=== PATIENT | female | born 1930 | race African-American/Black ===

== ENCOUNTER 2018-08-11 12:04 | Inpatient (IN) | payer MEDICARE, MEDICAID ==
[~2018-08-11] VITALS: Ht 165.1 cm; Wt 91.2 kg
[2018-08-11 15:22] LABS: CHLORIDE 109 mEq/L (98-107)
[2018-08-11 15:24] LABS: BASOPHILS % 1.9 % (0.0-2.0); EOSINOPHILS % 5.2 % (0.0-5.0); HEMATOCRIT. 27.4 % (36.0-48.0); HEMOGLOBIN. 9.1 g/dL (12.0-16.0); LYMPHOCYTES % 38.1 % (20.0-50.0); MEAN CORPUSCULAR VOLUME 102.2 fL (81.0-99.0); MEAN PLATELET VOLUME 8.7 fl (7.4-10.4); MONOCYTES % 7.7 % (2.0-8.0); NEUTROPHILS % 47.1 % (40.0-76.0); PLATELET 172 x1000/uL (130-400); RED BLOOD CELL COUNT 2.68 mill/uL (4.2-5.4); RED CELL DISTRIBUTION WIDTH 15.4 % (11.6-14.6)
[2018-08-11 15:26] LABS: INR 1.1; PARTIAL THROMBOPLASTIN TIME 30.3 sec (23.4-31.0); PROTHROMBIN TIME 10.7 sec (9.1-11.1)
[2018-08-11] MEDS ORDERED: ASPIRIN 81MG TABLET PO ONE (15:45)
[2018-08-11] MEDS ORDERED: NITROGLYCERIN OINT 1GM/INCH UDPKT TD ONE (15:45)
[2018-08-11] MEDS ORDERED: FUROSEMIDE 40MG/4ML VIAL IV ONE (15:45)
[2018-08-11] MEDS ORDERED: DIPHENHYDRAMINE 50MG/ML VIAL IV PRN (17:15)
[2018-08-11] MEDS ORDERED: HYDRALAZINE 20MG/ML VIAL IV PRN (17:15)
[2018-08-11] MEDS ORDERED: IPRATROPIUM/ALBUTEROL 0.5-3(2.5)MG/3ML NEB INH PRN (17:15)
[2018-08-11] MEDS ORDERED: ACETAMINOPHEN 325MG TABLET PO PRN (17:15)
[2018-08-11] MEDS ORDERED: DOCUSATE SODIUM 100MG CAPSULE PO PRN (17:15)
[2018-08-11] MEDS ORDERED: GUAIFENESIN 200MG/10ML SUGAR FREE UDC PO PRN (17:15)
[2018-08-11] MEDS ORDERED: NA PHOS,M-B/NA PHOS,DI-BA ENEMA 118ML PR PRN (17:15)
[2018-08-11] MEDS ORDERED: MAGNESIUM/ALUMINUM HYDROXIDE/SIMETHICONE 30ML UDC PO PRN (17:15)
[2018-08-11] MEDS ORDERED: LORAZEPAM 2MG/ML CPJ IV PRN (17:15)
[2018-08-11] MEDS ORDERED: ONDANSETRON HCL 4MG/2ML INJ IV PRN (17:15)
[2018-08-11] MEDS ORDERED: HYDROCODONE/ACETAMINOPHEN 5/325MG TABLET PO PRN (17:15)
[2018-08-11] MEDS ORDERED: CLONIDINE 0.1MG TABLET PO PRN (17:15)
[2018-08-11 23:30] VITALS: BP 93/48
[2018-08-12 00:05] LABS: CREATINE KINASE 63 IU/L (26-192)
[2018-08-12 00:06] LABS: CREATINE KINASE MB FRACTION < 1.0 ng/mL (0.5-3.6)
[2018-08-12] MEDS ORDERED: Tylenol (00:20)
[2018-08-12] MEDS ORDERED: lasix (00:20)
[2018-08-12] MEDS ORDERED: potassium (00:20)
[2018-08-12] MEDS ORDERED: FURO-151 PO (00:20)
[2018-08-12 05:00] VITALS: BP 139/47
[2018-08-12] MEDS: SODIUM CHLORIDE 0.9% INJ 3ML FLUSH IVF SCH ×3 (05:15→20:32)
[2018-08-12] MEDS: HYDROMORPHONE HCL/PF 2MG/ML CPJ IV PRN ×2 (05:15→23:25)
[2018-08-12 06:11] LABS: BASOPHILS % 1.4 % (0.0-2.0); EOSINOPHILS % 5.4 % (0.0-5.0); HEMATOCRIT. 27.4 % (36.0-48.0); HEMOGLOBIN. 9.1 g/dL (12.0-16.0); LYMPHOCYTES % 30.7 % (20.0-50.0); MEAN CORPUSCULAR HEMOGLOBIN 33.8 pg (28.0-32.0); MEAN PLATELET VOLUME 8.6 fl (7.4-10.4); MONOCYTES % 7.9 % (2.0-8.0); NEUTROPHILS % 54.6 % (40.0-76.0); PLATELET 184 x1000/uL (130-400); RED BLOOD CELL COUNT 2.69 mill/uL (4.2-5.4); RED CELL DISTRIBUTION WIDTH 15.1 % (11.6-14.6)
[2018-08-12 06:27] LABS: CHLORIDE 109 mEq/L (98-107)
[2018-08-12 06:38] LABS: CREATINE KINASE 70 IU/L (26-192)
[2018-08-12 06:40] LABS: CREATINE KINASE MB FRACTION < 1.0 ng/mL (0.5-3.6)
[2018-08-12 08:00] VITALS: BP 125/59
[2018-08-12] MEDS: ASPIRIN 81MG EC TABLET PO SCH (08:50)
[2018-08-12] MEDS: ENOXAPARIN 40MG/0.4ML SYR SUBCUT SCH (08:51)
[2018-08-12] MEDS: FUROSEMIDE 40MG/4ML VIAL IV SCH (09:30)
[2018-08-12 10:48] LABS: T4 FREE 1.14 ng/dL (0.76-1.46)
[2018-08-12 12:00] VITALS: BP 110/52
[2018-08-12 16:00] VITALS: BP 119/56
[2018-08-12 20:00] VITALS: BP_SYST 133; BP_SYST 141; BP_DIAS 43; BP_DIAS 49
[2018-08-13] VITALS: BP 133/43
[2018-08-13 04:00] VITALS: BP 124/42
[2018-08-13] MEDS: SODIUM CHLORIDE 0.9% INJ 3ML FLUSH IVF SCH ×3 (05:23→20:48)
[2018-08-13 08:00] VITALS: BP 143/49
[2018-08-13] MEDS: ASPIRIN 81MG EC TABLET PO SCH (09:09)
[2018-08-13] MEDS: ENOXAPARIN 40MG/0.4ML SYR SUBCUT SCH (09:10)
[2018-08-13] MEDS: FUROSEMIDE 40MG/4ML VIAL IV SCH (09:49)
[2018-08-13 12:00] VITALS: BP 138/50
[2018-08-13 16:00] VITALS: BP 145/48
[2018-08-13 20:00] VITALS: BP 155/50
[2018-08-13] MEDS: HYDROMORPHONE HCL/PF 2MG/ML CPJ IV PRN (22:10)
[2018-08-14 00:05] VITALS: BP 141/52
[2018-08-14 04:00] VITALS: BP 142/52
[2018-08-14] MEDS: SODIUM CHLORIDE 0.9% INJ 3ML FLUSH IVF SCH (05:41)
[2018-08-14 08:00] VITALS: BP 140/56
[2018-08-14 08:04] VITALS: BP 144/46
[2018-08-14] MEDS: ASPIRIN 81MG EC TABLET PO SCH (08:57)
[2018-08-14] MEDS: ENOXAPARIN 40MG/0.4ML SYR SUBCUT SCH (08:57)
[2018-08-14] MEDS: FUROSEMIDE 40MG/4ML VIAL IV SCH (09:10)
== END 2018-08-14 10:50 | disposition home or self-care (01) | DRG 682 ==
LOC: ER 13:30 → 7WST 16:00 → EDBEDREQTM 16:02 → EDBEDREQ 16:02 → EDBEDREQTM 16:05 → EDBEDREQ 16:05 → ENRESERV 19:22
PROVIDERS: ADMIT Internal Medicine; ATTEND Internal Medicine
DX: N17.0 Acute kidney failure with tubular necrosis (principal); I50.43 Acute on chronic combined systolic (congestive) and diastolic (congestive) heart failure; I11.0 Hypertensive heart disease with heart failure; D64.9 Anemia, unspecified; G89.29 Other chronic pain; H54.61 Unqualified visual loss, right eye, normal vision left eye; M19.90 Unspecified osteoarthritis, unspecified site; Z96.653 Presence of artificial knee joint, bilateral; Z79.899 Other long term (current) drug therapy; Z88.0 Allergy status to penicillin
CPT/HCPCS: 36415; 71045; 73521; 80061; 82550; 82553; 83036; 83880; 84439; 84443; 84484; 85379; 93005; 93306; 93970; 96374; 99285; J1170; J1650; J1940

== ENCOUNTER 2018-12-31 17:36 | Emergency (ER) | payer MEDICARE, MEDICAID ==
[~2018-12-31] VITALS: Ht 170.2 cm; Wt 80.0 kg
[~2018-12-31 17:36] MED LIST: FURO-151 PO; Tylenol; potassium
[2018-12-31] MEDS ORDERED: CLONIDINE 0.2MG TABLET PO ONE (20:30)
[2018-12-31 23:30] VITALS: BP 149/47
== END 2019-01-01 | disposition home or self-care (01) ==
LOC: ER 17:40
DX: M79.89 Other specified soft tissue disorders (principal); M79.605 Pain in left leg; I10 Essential (primary) hypertension; Z86.73 Personal history of transient ischemic attack (TIA), and cerebral infarction without residual deficits; Z88.0 Allergy status to penicillin; Z79.899 Other long term (current) drug therapy
CPT/HCPCS: 93971; 99284